=== PATIENT | female | born 1995 | race Caucasian/White ===

== ENCOUNTER 2017-10-19 21:20 | Emergency (ER) | payer OTHER ==
[~2017-10-19] VITALS: Ht 165.1 cm; Wt 86.2 kg
[2017-10-19] MEDS ORDERED: birth control (21:34)
[2017-10-19 22:50] VITALS: BP 122/57
== END 2017-10-19 22:55 | disposition home or self-care (01) ==
LOC: M.ERS 21:20
DX: G43.909 Migraine, unspecified, not intractable, without status migrainosus (principal)